=== PATIENT | female | born 1995 | race American Indian/Alaskan Native ===

== ENCOUNTER 2021-05-11 20:19 | Emergency (ER) | payer MEDICAID, OTHER, SELFPAY ==
--- NOTE | 2021-05-11 21:44 | EDM.PDOC ---
ED HPI GENERAL MEDICAL PROBLEM - General Chief Complaint: Respiratory Problem Stated Complaint: COUGH CONGESTION SOB Time Seen by Provider: 05/11/21 20:56 Source of Information: Reports: Patient History Limitations: Reports: No Limitations - History of Present Illness INITIAL COMMENTS - FREE TEXT/NARRATIVE: 25-year-old female presents the emergency department with 2-week history of cough, sore throat with green mucus, and chills that started approximately a year ago. Patient also complains of right ear pain that started about 1 year ago. She states she did have Covid in May 2020. She denies any fever, nausea, vomiting, diarrhea or abdominal pain. She denies any urinary symptoms. She denies any headache. - Related Data Allergies Allergy/AdvReac Type Severity Reaction Status Date / Time contrast dye Allergy Other Uncoded 05/11/21 21:05 Home Meds: Home Meds . [No Known Home Meds] 01/07/20 [History] Past Medical History Gastrointestinal History: Reports: None [employer] History: Reports: - Infectious Disease History Infectious Disease History: Reports: Novel Coronavirus - Past Surgical History GI Surgical History: Reports: Appendectomy Social & Family History - Family History Family Medical History: No Pertinent Family History - Tobacco Use Tobacco Use Status *Q: Never Tobacco User Second Hand Smoke Exposure: No - Caffeine Use Caffeine Use: Reports: Coffee - Recreational Drug Use Recreational Drug Use: No ED ROS GENERAL - Review of Systems Review Of Systems: Comprehensive ROS is negative, except as noted in HPI. ED EXAM, GENERAL - Physical Exam Exam: See Below Exam Limited By: No Limitations General Appearance: Alert, WD/WN, No Apparent Distress Ears: Normal External Exam, Normal Canal, Hearing Grossly Normal, Normal TMs Ear Exam: Bilateral Ear: TM normal Nose: Normal Inspection Throat/Mouth: Normal Inspection, Normal Lips, Normal Voice, No Airway Compromise, Other (no tonsillar exudate; tonsils are erythematous and edematous.) Head: Atraumatic Neck: Normal Inspection, Supple, Non-Tender, Full Range of Motion. No: Lymphadenopathy (L), Lymphadenopathy (R) Respiratory/Chest: No Respiratory Distress, Lungs Clear, Normal Breath Sounds, No Accessory Muscle Use, Chest Non-Tender Cardiovascular: Normal Peripheral Pulses, Regular Rate, Rhythm, No Edema, No Murmur GI/Abdominal: Normal Bowel Sounds, Soft, Non-Tender, No Distention (Female) Exam: Deferred Rectal (Female) Exam: Deferred Back Exam: Normal Inspection Extremities: Normal Inspection Neurological: Alert, Oriented, Normal Cognition Psychiatric: Normal Affect, Normal Mood Skin Exam: Warm, Dry, Intact, Normal Color, No Rash Lymphatic: No Adenopathy Course - Vital Signs Text/Narrative:: Upon assessment, the patient's tympanic membranes are within normal limits. There is no erythema or edema. Patient's throat is red however her tonsils are erythematous but there is no exudate noted. Lungs are clear to auscultation. She does have a persistent cough however. I have ordered for strep screen and Covid, influenza A and influenza B swab. Last Recorded V/S: Last Vital Signs Temp 98.3 F 05/11/21 21:05 Pulse 95 05/11/21 21:05 Resp 18 05/11/21 21:05 BP 129/68 05/11/21 21:05 Pulse Ox 98 05/11/21 21:05 - Orders/Labs/Meds Labs: Laboratory Tests 05/11/21 Range/Units 21:20 Influenza Type A RNA Negative (NEGATIVE) Influenza Type B RNA Negative (NEGATIVE) SARS-CoV-2 RNA (DAYDAY) Negative (NEGATIVE) Group A Strep (PCR) Detected H (NOT DETECT) Meds: Medications Discontinued Medications Generic Name Dose Route Start Last Admin Trade Name Odalis PRN Reason Stop Dose Admin Penicillin G Benzathine 1.2 millunits 05/11/21 22:30 Penicillin G Benzathine 1,200,000 Units/2 Ml Syringe IM 05/11/21 22:31 ONETIME ONE - Re-Assessments/Exams Free Text/Narrative Re-Assessment/Exam: 05/11/21 22:33 Group A strep is detected as high. I have ordered for the patient to received benzathine penicillin G 1.2 million units IM once. 05/11/21 22:51 Influenza A & B are negative as well as covid swab. Pt will be discharged to home. Departure - Departure Time of Disposition: 22:52 Disposition: Home, Self-Care 01 Condition: Good Clinical Impression: Strep pharyngitis - Discharge Information Instructions: Strep Throat, Adult Referrals: PCP,None [Primary Care Provider] - Forms: ED Department Discharge Additional Instructions: You were seen in the ED with complaints of sore throat, congestion, chills and cough that has lasted for the last two weeks. Strep screen was completed and this was positive. You were given a shot of Penicillin G to treat the infection. No further antibiotics are warranted. Influenza A&B and covid swabs were all negative. You should start to feel better in the next couple of days. Increase your fluid intake. May take tylenol or ibuprofen per label directions to manage discomfort of fever. May take over the counter cough medications to manage the cough. Use a humidifier or sit in hot steamy showers to treat congestion. Sepsis Event Note (ED) - Evaluation Sepsis Screening Result: No Definite Risk - Focused Exam Vital Signs: Vital Signs Temp Pulse Resp BP Pulse Ox 05/11/21 21:05 98.3 F 95 18 129/68 98
[2021-05-11 21:55] LABS: STREP A BY PCR DETECTED (NOT DETECT)
[2021-05-11 22:25] LABS: CORONAVIRUS COVID-19 NAA NEGATIVE (NEGATIVE)
[2021-05-11] MEDS ORDERED: Penicillin G Benzathine 1,200,000 Units/2 ML Syringe IM ONE (22:30)
== END 2021-05-11 23:15 | disposition home or self-care (01) ==
LOC: JD.ED 20:19
DX: J02.0 Streptococcal pharyngitis (principal); Z20.822 Contact with and (suspected) exposure to COVID-19
CPT/HCPCS: 0240U; 87651; 96372; 99283; J0561